=== PATIENT | female | born 2000 | race Hispanic/Latino ===

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

== ENCOUNTER 2020-02-08 22:05 | Day surgery (SDC) | payer OTHER ==
[2020-02-08 22:49] VITALS: BP 105/58; TEMP 98.5; BMI 40.7
[2020-02-08] MEDS ORDERED: hydrALAZINE 20 MG/ML VIAL SLOW IVP PRN (23:08)
--- NOTE | 2020-02-08 23:20 | PRG ---
DATE OF SERVICE: 02/08/2020 TIME OF SERVICE: 2300 hours. PRESENTING COMPLAINT: Thirty-six weeks with lower back pain. HISTORY OF PRESENT ILLNESS: The patient is a 19-year-old 3, para 2, AB zero, x1, scheduled for repeat in 3 weeks who works at [employer], who states that she had lower back pain after working a shift. She denies dysuria, frequency. She reports an uncomplicated . Antepartum records not available on the unit. 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 PAST MEDICAL HISTORY: Denies. PAST SURGICAL HISTORY: C-sections only. ALLERGIES: DENIES. MEDICATIONS: vitamins. SOCIAL HISTORY: Denies tobacco, alcohol, or IV drug abuse. FAMILY HISTORY: Noncontributory. REVIEW OF SYSTEMS: Noncontributory. PHYSICAL EXAMINATION: GENERAL: female, resting comfortably, smiling. VITAL SIGNS: Temperature 98.2, pulse 92, respirations 18, blood pressure 122/84. HEENT: Within normal limits. LUNGS: Clear to auscultation bilaterally. HEART: Regular rate and rhythm. ABDOMEN: Soft and nontender. She does not have CVA tenderness. FHTs are 140s. Vaginal exam deferred. EXTREMITIES: Without clubbing, cyanosis, or edema. monitoring is carried out for greater than 30 minutes which revealed a category 1 heart rate tracing, baseline 140s to 150s, positive accelerations, no decelerations, occasional uterine irritability was noted. No regular contractions noted. IMPRESSION: Discomforts of . PLAN: Reassurance. ER precautions. Discharge home. Keep scheduled followup with Dr. Sheikh. Job ID: [id number]
== END 2020-02-08 23:08 | disposition home or self-care (01) ==
LOC: L&D/OP 22:05
PROVIDERS: ATTEND Family Medicine
DX: O99.89 Other specified diseases and conditions complicating pregnancy, childbirth and the puerperium (principal); M54.5 Low back pain; O34.219 Maternal care for unspecified type scar from previous cesarean delivery; Z3A.00 Weeks of gestation of pregnancy not specified
CPT/HCPCS: 99281